=== PATIENT | female | born 1980 | race American Indian/Alaskan Native ===

== ENCOUNTER 2019-04-17 23:20 | Emergency (ER) | payer SELFPAY ==
[2019-04-17 23:44] VITALS: BP 126/80
[2019-04-18] MEDS ORDERED: KETOROLAC 30 MG/1 ML INJ IM ONE (02:30)
[2019-04-18] MEDS ORDERED: predniSONE 20 MG TAB PO ONE (02:30)
[2019-04-18] MEDS ORDERED: ACETAMINOPHEN 500 MG TAB PO ONE (02:30)
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
== END 2019-04-18 03:10 | disposition home or self-care (01) ==
LOC: ED 23:20
DX: S29.012A Strain of muscle and tendon of back wall of thorax, initial encounter (principal); G43.909 Migraine, unspecified, not intractable, without status migrainosus; Z87.891 Personal history of nicotine dependence; Z79.899 Other long term (current) drug therapy; Z88.8 Allergy status to other drugs, medicaments and biological substances; G89.29 Other chronic pain; X58.XXXA Exposure to other specified factors, initial encounter; Y93.89 Activity, other specified; Y92.89 Other specified places as the place of occurrence of the external cause; Y99.8 Other external cause status
CPT/HCPCS: 96372; 99282; J1885; J7512